=== PATIENT | male | born 1980 | race Caucasian/White ===

== ENCOUNTER 2022-02-05 08:33 | Outpatient (CLI) | payer BC, SELFPAY ==
--- NOTE | ~2022-02-05 | MR_ITS ---
EXAMINATION: MR shoulder LT wo con DATE: 02/05/2022 09:22 INDICATION: Severe posttraumatic left shoulder pain TECHNIQUE: Magnetic resonance imaging (MRI) of the left shoulder was performed without intravenous co ntrast. Sequences included axial PD-weighted FS FSE, coronal oblique PD-weighted FS FSE, coronal obli que T2-weighted FS FSE, sagittal PD-weighted FS FSE, and sagittal T1-weighted SE. COMPARISON: None. FINDINGS: Coracoacromial arch: The acromion undersurface is flat in morphology (type I). The coracoacromial ligament is normal. Mini mal acromioclavicular osteoarthritis. Rotator cuff: Mild supraspinatus and infraspinatus tendinopathy without tear. The subscapularis and teres minor ten dons are normal. Normal rotator cuff muscle bulk and signal. Biceps tendon, glenoid labrum and glenohumeral cartilage: Long head of the biceps tendon is normal. There is a tear of the left glenoid labrum which begins ant eriorly at the 1:00 position and extends posteriorly to the 9:00 position. Glenohumeral cartilage is normal. Fluid: Physiologic amount of fluid in the glenohumeral joint and biceps tendon sheath. No loose osteochondr al bodies. No abnormal fluid signal in the subacromial/subdeltoid bursa to suggest bursitis. Bones: Normal marrow signal with no edema, fracture or abnormal marrow replacing process. IMPRESSION: 1. Tear of the anterosuperior to posterior glenoid labrum. 2. Mild supraspinatus and infraspinatus tendinopathy without discrete tear. Reviewed, dictated and finalized at location A.
== END 2022-02-05 08:34 | disposition home or self-care (01) ==
PROVIDERS: PCP Internal Medicine; Visit Provider Orthopaedic Surgery
DX: M25.512 Pain in left shoulder (principal); S43.432A Superior glenoid labrum lesion of left shoulder, initial encounter; X58.XXXA Exposure to other specified factors, initial encounter
CPT/HCPCS: 73221

== ENCOUNTER 2024-03-21 07:12 | Emergency (ER) | payer BC, SELFPAY ==
--- NOTE | ~2024-03-21 | XR_ITS ---
XR foot RT min 3V Ordering provider: Sherice Roper MD History: . 1ST TOE PAIN, KICKED A FILE CABINET YESTERDAY . Comparison: None. FINDINGS: BONES: No acute fracture or dislocation. Hallux valgus. 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 No tarsal coaliti on. SOFT TISSUES: Normal. IMPRESSION: No acute osseous abnormality of the right foot. Reviewed, dictated and finalized at location A. CTOR INFORMATION
[2024-03-21 07:19] VITALS: BP 147/91; PULSE 89; RESP 16; TEMP 37; O2SAT 97
[2024-03-21 08:08] VITALS: BP 145/87; PULSE 84; RESP 18; TEMP 36.6; O2SAT 98
--- NOTE | 2024-03-21 09:06 | ED_ITS ---
HPI - Extremity Injury (Lower) General Chief Complaint: Extremity Injury, Lower Stated Complaint: R foot injury Time Seen by Provider: 03/21/24 08:51 History of Present Illness HPI Narrative: Around 4:00 a.m. patient kicked a cabinet out of frustration, now has pain to his right foot. Initially throat then stops hurting, however while he was driving to work start having pain again to his right foot Related Data Allergies Allergy/AdvReac Type Severity Reaction Status Date / Time No Known Allergies Allergy Verified 03/21/24 07:12 Review of Systems Review of Systems: All systems reviewed & are unremarkable except as noted in HPI and below Exam Narrative: EXAMINATION OF ORGAN SYSTEMS/BODY AREAS: Constitutional: Vital signs per nursing GENERAL:[No acute distress, non-toxic appearing.] HEAD: Normal with no signs of head trauma. EYES: EOMI, conjunctiva normal ENT: Hearing grossly intact LUNGS: Nonlabored breathing. HEART: [Regular rate and rhythm]; normal DP pulses ABD: [Soft], [nontender to palpation] EXT: Normal range of motion SKIN: bruising right foot/great toe NEURO: [Alert and oriented x 3. No gross focal sensory or strength deficits.] PSYCH: Normal affect Course Vital Signs Vital signs: Vital Signs Temperature 98.6 F 03/21/24 07:19 Pulse Rate 89 03/21/24 07:19 Respiratory Rate 16 03/21/24 07:19 Blood Pressure 147/91 H 03/21/24 07:19 Pulse Oximetry 97 03/21/24 07:19 Oxygen Delivery Room Air 03/21/24 07:19 Temperature 98 F 03/21/24 08:08 Pulse Rate 84 03/21/24 08:08 Respiratory Rate 18 03/21/24 08:08 Blood Pressure 145/87 H 03/21/24 08:08 Pulse Oximetry 98 03/21/24 08:08 Oxygen Delivery Room Air 03/21/24 07:19 MDM - Extremity Injury (Lower) MDM Narrative Medical decision making narrative: patient here with right foot injury, he is neurovascularly intact, with some tenderness, bruising, swelling to the right foot/big toe x-ray without obvious fracture. Patient ambulating without issues. Given work note to stay off foot with follow-up to Podiatry and instructions to rice with return precautions, patient agreeable to this plan Discharge Plan Discharge Clinical Impression: Sprain of toe Patient Disposition: Home, Self-Care Condition: Stable Instructions: Foot Sprain (ED) Additional Instructions: Keep right foot elevated, use ice on the bruising for the 1st few days, take Tylenol and ibuprofen for pain as needed, follow-up with the foot doctor in a week. Come back to the ER if you have any worsening issues. Patient Language: Ukrainian Prescriptions: New acetaminophen [Tylenol Extra Strength] 500 mg tablet 1,000 mg PO Q6H PRN (Reason: pain) Qty: 50 0RF ibuprofen 600 mg tablet 600 mg PO TID PRN (Reason: fever or pain) Qty: 30 0RF Follow-up/Referrals: Marcial Beck Jr., LUDWIG [Physician] - 1 Week PHYSICIAN NOT ON STAFF,NONSTAFF [Non-Staff] - Stand Alone Forms: Work/School Release IP
== END 2024-03-21 09:42 | disposition home or self-care (01) ==
LOC: ANHED 09:19
PROVIDERS: Emergency Provider Emergency Medicine
DX: S93.501A Unspecified sprain of right great toe, initial encounter (principal); W22.09XA Striking against other stationary object, initial encounter
CPT/HCPCS: 73630; 99283